=== PATIENT | female | born 1955 | race Caucasian/White ===

== ENCOUNTER 2019-12-27 17:08 | Emergency (ER) | payer BC ==
[~2019-12-27] VITALS: Ht 162.6 cm; Wt 92.3 kg
[2019-12-27] MEDS ORDERED: [UNRECOGNIZED DRUG - OTHER] PO (17:27)
[2019-12-27] MEDS ORDERED: PANT-23 PO (17:27)
[2019-12-27] MEDS ORDERED: LEVO112T2 PO (17:27)
[2019-12-27] MEDS ORDERED: LISI10TA4 PO (17:27)
[2019-12-27 18:34] LABS: BASO # 0.1 10^3/uL (0.0-0.2); BASO % 0.7 % (0.0-1.0); EOS # 0.1 10^3/uL (0.0-0.5); EOS % 1.6 % (0.0-3.0); HEMATOCRIT 39.3 % (36.0-47.0); HEMOGLOBIN 12.7 g/dl (12.0-15.5); LYMPH # 2.4 10^3/uL (1.5-5.0); LYMPH % 26.7 % (24.0-44.0); MEAN CORPUSCULAR HEMOGLOBIN 29.1 pg (27.0-33.0); MEAN CORPUSCULAR HGB CONC 32.3 g/dl (32.0-36.5); MEAN CORPUSCULAR VOLUME 89.9 fl (80.0-96.0); MONO # 0.7 10^3/uL (0.0-0.8); MONO % 7.8 % (0.0-5.0); NEUTROPHILS # 5.6 10^3/uL (1.5-8.5); PLATELET COUNT, AUTOMATED 410 10^3/uL (150-450); RED BLOOD COUNT 4.37 10^6/uL (4.00-5.40); WHITE BLOOD COUNT 8.9 10^3/uL (4.0-10.0)
[2019-12-27 18:46] LABS: INR 0.97; PROTHROMBIN TIME 13.1 SECONDS (12.5-14.3)
--- NOTE | 2019-12-27 19:01 | REPVR ---
PROCEDURE INFORMATION: Exam: XR Chest, 1 View Exam date and time: 12/27/2019 6:55 PM Age: 64 years old Clinical indication: Chest pain TECHNIQUE: Imaging protocol: XR of the chest Views: 1 view. COMPARISON: No relevant prior studies available. FINDINGS: Lungs: Unremarkable. No consolidation. No pulmonary edema. Pleural space: Unremarkable. No pleural effusion or pneumothorax is identified. Heart/Mediastinum: Unremarkable. No cardiomegaly. Bones/joints: There are endplate spurs in the thoracic spine. IMPRESSION: No acute findings. Electronically signed by: Abhijeet Aceves On 12/27/2019 19:00:49 PM
[2019-12-27 19:09] LABS: ALBUMIN 3.9 GM/DL (3.2-5.2); BILIRUBIN,DIRECT 0.1 MG/DL (0.0-0.2); BILIRUBIN,TOTAL 0.3 MG/DL (0.2-1.0); FREE T4 1.1 NG/DL (0.76-1.46); THYROID STIMULATING HORMONE 2.01 uIU/ML (0.358-3.740); TOTAL PROTEIN 7.8 GM/DL (6.4-8.2)
[2019-12-27 19:43] LABS: BLOOD UREA NITROGEN 16 MG/DL (7-18); CALCIUM LEVEL 9.9 MG/DL (8.8-10.2); CARBON DIOXIDE LEVEL 27 MEQ/L (21-32); CHLORIDE LEVEL 108 MEQ/L (98-107); CK-MB VALUE MASS < 1.0 NG/ML (<3.6); CPK CREATINE PHOSPHOKINASE 69 U/L (26-192); CREATININE FOR GFR 0.86 MG/DL (0.55-1.30); GLOMERULAR FILTRATION RATE > 60.0 (>45); GLUCOSE, FASTING 92 MG/DL (70-100); MB/CK RELATIVE INDEX 1.45 (< OR =4); POTASSIUM SERUM 4.1 MEQ/L (3.5-5.1); SODIUM LEVEL 139 MEQ/L (136-145); TROPONIN I < 0.02 NG/ML (< 0.10)
[2019-12-27] MEDS ORDERED: LISI-538 PO (20:34)
[2019-12-27 20:52] VITALS: BP 150/78
--- NOTE | 2019-12-28 07:27 | ECGEPIP ---
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
== END 2019-12-27 20:54 | disposition home or self-care (01) ==
LOC: M ED 17:08
DX: I10 Essential (primary) hypertension (principal); R07.89 Other chest pain; K21.9 Gastro-esophageal reflux disease without esophagitis; E03.9 Hypothyroidism, unspecified; Z79.890 Hormone replacement therapy; Z79.899 Other long term (current) drug therapy

== ENCOUNTER 2019-12-29 18:31 | Emergency (ER) | payer BC ==
[~2019-12-29] VITALS: Ht 162.6 cm; Wt 97.9 kg
[~2019-12-29 18:31] MED LIST: LEVO112T2 PO; LISI-538 PO; LISI10TA4 PO; PANT-23 PO; [UNRECOGNIZED DRUG - OTHER] PO
[2019-12-29 20:00] VITALS: BP 160/74
[2019-12-29] MEDS ORDERED: METAL LOCK LOOP XX ONE (20:23)
== END 2019-12-29 20:20 | disposition home or self-care (01) ==
LOC: M ED 18:31
DX: I10 Essential (primary) hypertension (principal); E03.9 Hypothyroidism, unspecified; K21.9 Gastro-esophageal reflux disease without esophagitis; D69.3 Immune thrombocytopenic purpura; Z79.899 Other long term (current) drug therapy